=== PATIENT | female | born 1980 | race Two or more races ===

== ENCOUNTER 2017-12-25 13:57 | Inpatient (IN) | payer MEDICAID, OTHER ==
[~2017-12-25] VITALS: Ht 154.9 cm; Wt 66.7 kg
--- NOTE | 2017-12-25 15:20 | NUR ---
Pt states she is unable to provide a urine specimen at this time.
[2017-12-25] MEDS ORDERED: ONDANSETRON 4 MG/2 ML VIAL ONE ×3 (15:43→18:01)
[2017-12-25] MEDS ORDERED: ONDANSETRON IV *ER 4 MG/2 ML VIAL IV ONE ×3 (15:45→17:45)
[2017-12-25] MEDS ORDERED: IV NORMAL SALINE 1000 ML BAG IV ONE (15:45)
[2017-12-25 15:47] LABS: BASOPHILS % (AUTO) 0.2 % (0.0-2.0); EOSINOPHILS # (AUTO) 0.1 K/uL (0.0-0.7); EOSINOPHILS % (AUTO) 0.6 % (0.0-7.0); HEMATOCRIT 38.2 % (31.2-41.9); HEMOGLOBIN 12.1 g/dL (10.9-14.3); LYMPHOCYTES # (AUTO) 0.3 K/uL (20.0-40.0); LYMPHOCYTES % (AUTO) 2.9 % (20.5-51.5); MEAN CORPUSCULAR HEMOGLOBIN 25.5 uug (24.7-32.8); MEAN CORPUSCULAR HGB CONC 32 g/dL (32.3-35.6); MEAN CORPUSCULAR VOLUME 80.5 fL (75.5-95.3); MONOCYTES # (AUTO) 0.5 K/uL (2.0-10.0); NEUTROPHILS # (AUTO) 10.7 K/uL (1.8-8.9); NEUTROPHILS % (AUTO) 92.3 % (38.5-71.5); PLATELET COUNT (AUTO) 324 K/uL (179-408); RED BLOOD CELL COUNT(AUTO) 4.74 MIL/uL (3.63-4.92); WHITE BLOOD COUNT (AUTO) 11.6 K/uL (3.8-11.8)
[2017-12-25 15:54] LABS: CREATININE 0.8 mg/dL (0.6-1.3); POTASSIUM 3.4 mmol/L (3.5-5.1)
[2017-12-25 16:00] LABS: BILIRUBIN,TOTAL 0.7 mg/dL (0.2-1.0); TOTAL PROTEIN, SERUM 7.8 g/dL (6.4-8.2)
[2017-12-25] MEDS ORDERED: IV NS 1000 ML 1,000 ML IV PRN ×2 (16:15→18:00)
--- NOTE | 2017-12-25 17:15 | NUR ---
Pt sleeping with no s/s of distress noted at this time.
--- NOTE | 2017-12-25 17:40 | NUR ---
Hida Scan ordered by , radiology dept notified.
[2017-12-25] MEDS ORDERED: MORPHINE SULFATE 2 MG/1 ML DISP.SYRIN IV ONE (17:45)
[2017-12-25] MEDS ORDERED: METRONIDAZOLE 500 MG/NS 100 ML PIGGYBACK IV ONE (17:45)
[2017-12-25] MEDS ORDERED: CIPROFLOXACIN IV 400 MG in PREMIXED 1 EACH IV SCH (17:45)
[2017-12-25] MEDS ORDERED: PANTOPRAZOLE SODIUM IV 40 MG in IV DEXTROSE 5% 100 ML IV ONE (18:00)
[2017-12-25] MEDS ORDERED: METRONIDAZOLE 500 MG/NS 100ML 100 ML IV ONE (18:01)
[2017-12-25] MEDS ORDERED: PANTOPRAZOLE SODIUM 40 MG VIAL ONE (18:03)
--- NOTE | 2017-12-25 18:31 | NUR ---
Pt signed consent for Hida Scan after talking with the Nuclear Med tech.
--- NOTE | 2017-12-25 18:56 | NUR ---
Per Natasha eta for Hida Scan is 1999. Pt resting in gurney with eyes closed and no s/s of distress noted.
--- NOTE | 2017-12-25 19:14 | NUR ---
REPORT TAKEN FROM DAY SHIFT RN. ASSUMING CARE AT THIS TIME.
--- NOTE | 2017-12-25 19:41 | NUR ---
PT AMBULATED TO AND FROM BATHROOM W/ STEADY GAIT. 1X SBA. NO DISTRESS NOTED.
--- NOTE | 2017-12-25 19:43 | NUR ---
PT TAKEN TO RADIOLOGY BY RFID TECHNICIAN. NO DISTRESS NOTED.
--- NOTE | 2017-12-25 21:23 | NUR ---
PT BACK IN ROOM FROM RADIOLOGY. NO ACUTE EVENTS.
--- NOTE | 2017-12-25 21:51 | NUR ---
PT RESTING IN BED W/ EYES CLOSED. NO ACUTE DISTRESS NOTED.
--- NOTE | 2017-12-25 21:54 | NUR ---
DR BARNES AT BEDSIDE FOR REEVAL.
--- NOTE | 2017-12-25 22:08 | NUR ---
PT TAKEN TO RADIOLOGY FOR CT VIA GURNEY. NO DISTRESS NOTED.
--- NOTE | 2017-12-25 22:25 | NUR ---
PT BACK IN ROOM FROM CT SCAN. NO ACUTE EVENTS.
[2017-12-25] MEDS ORDERED: IBUPROFEN 600 MG TABLET ONE (23:14)
[2017-12-25] MEDS ORDERED: IBUPROFEN 600 MG TABLET PO ONE (23:15)
--- NOTE | 2017-12-26 00:25 | NUR ---
DR BARNES SPEAKING TO MORTEZA FERNANDO REGARDING PT ADMISSION.
--- NOTE | 2017-12-26 00:37 | NUR ---
REPORT GIVEN TO REGINALD MAGALLANES.
[2017-12-26 01:06] VITALS: BP 112/72
--- NOTE | 2017-12-26 01:10 | NUR ---
Pt. admitted to [facility], under care of ABDULLAHI Belongs List completed
[2017-12-26] MEDS ORDERED: MORPHINE SULFATE 2 MG/1 ML DISP.SYRIN IV PRN (01:30)
[2017-12-26] MEDS ORDERED: ZOLPIDEM 5 MG TABLET PO PRN (01:30)
[2017-12-26] MEDS ORDERED: ACETAMINOPHEN 325 MG TABLET PO PRN (01:30)
[2017-12-26] MEDS ORDERED: IV NS 1000 ML 1,000 ML IV PRN (01:30)
[2017-12-26] MEDS ORDERED: ONDANSETRON 4 MG/2 ML VIAL IV PRN (01:30)
[2017-12-26] MEDS ORDERED: MAGNESIUM HYDROXIDE 30 ML LIQUID UDC PO PRN (01:30)
--- NOTE | 2017-12-26 01:30 | NUR ---
Received pt in unit and observed to be AAO x 3. No s/s of acute distress noted at this time. Pt made aware of all plan of care. Pertinent assessments done. Unit orientation provided. Safe environment implemented. Call light within reach.
[2017-12-26 01:41] LABS: *BILIRUBIN,URIN NEGATIVE (NEGATIVE); *BLOOD, URINE NEGATIVE (NEGATIVE); *CLARITY,URINE CLEAR (CLEAR); *COLOR,URINE YELLOW (YELLOW); *KETONES,URINE NEGATIVE (NEGATIVE); *PROTEIN,URINE NEGATIVE (NEGATIVE); LEUKOCYTE ESTERASE ,URINE NEGATIVE (NEGATIVE); NITRITE, URINE NEGATIVE (NEGATIVE); UGLUCOSE NEGATIVE (NEGATIVE)
[2017-12-26] MEDS ORDERED: PIPERACILLIN/TAZOBACTAM/D5W 3.375 G in PREMIXED 1 EACH IV SCH (01:45)
[2017-12-26 02:00] LABS: *AMPHETAMINE, URINE POSITIVE (NEGATIVE); *BARBITURATE, URINE NEGATIVE (NEGATIVE); *CANNABINOID, URINE NEGATIVE (NEGATIVE); *COCCAINE, URINE NEGATIVE (NEGATIVE); *OPIATE, URINE NEGATIVE (NEGATIVE); *PHENCYCLIDINE SCREEN,URINE NEGATIVE (NEGATIVE)
[2017-12-26 02:07] LABS: BACTERIA,URINE FEW /HPF (NONE SEEN); MUCUS,URINE FEW /LPF (0-FEW); RBC,URINE 0-3 /HPF (0-3); SQUAMOUS EPITHELIAL CELL,UR FEW /HPF (NONE SEEN); WBC,URINE 0-3 /HPF (0-3)
[2017-12-26 04:00] VITALS: BP 121/80
[2017-12-26] MEDS ORDERED: CIPROFLOXACIN IV 400 MG in PREMIXED 1 EACH IV SCH ×2 (06:00→18:00)
--- NOTE | 2017-12-26 06:54 | NUR ---
No s/s of acute distress noted at this time. All needs attended to. Pt kept NPO and aware of plan of care. Safe environment implemented. Call light within reach.
[2017-12-26 07:01] LABS: BASOPHILS % (AUTO) 0.2 % (0.0-2.0); EOSINOPHILS # (AUTO) 0.1 K/uL (0.0-0.7); EOSINOPHILS % (AUTO) 1.2 % (0.0-7.0); HEMATOCRIT 31.3 % (31.2-41.9); HEMOGLOBIN 10.5 g/dL (10.9-14.3); LYMPHOCYTES # (AUTO) 0.6 K/uL (20.0-40.0); MEAN CORPUSCULAR HEMOGLOBIN 26.8 uug (24.7-32.8); MEAN CORPUSCULAR HGB CONC 34 g/dL (32.3-35.6); MEAN CORPUSCULAR VOLUME 80.2 fL (75.5-95.3); MONOCYTES # (AUTO) 0.4 K/uL (2.0-10.0); MONOCYTES % (AUTO) 7.9 % (0.0-11.0); NEUTROPHILS # (AUTO) 4.6 K/uL (1.8-8.9); NEUTROPHILS % (AUTO) 80.7 % (38.5-71.5); PLATELET COUNT (AUTO) 262 K/uL (179-408); RED BLOOD CELL COUNT(AUTO) 3.91 MIL/uL (3.63-4.92); WHITE BLOOD COUNT (AUTO) 5.7 K/uL (3.8-11.8)
[2017-12-26 07:22] LABS: CREATININE 0.8 mg/dL (0.6-1.3); MAGNESIUM 1.7 mg/dL (1.8-2.4); PHOSPHOROUS 3.3 mg/dL (2.5-4.9); POTASSIUM 3.4 mmol/L (3.5-5.1)
--- NOTE | 2017-12-26 08:00 | NUR ---
AWAKE ALERT COOPERATE WELL NPO FOR NOW NO PAIN OR N/V RESTING WELL WITH CALL LIGHT IN REACH ,CONTINUE IVF
[2017-12-26] MEDS ORDERED: PANTOPRAZOLE SODIUM 40 MG VIAL IV SCH (09:00)
[2017-12-26] MEDS ORDERED: POTASSIUM CHLORIDE 50 ML IV SCH (09:15)
--- NOTE | 2017-12-26 10:00 | NUR ---
PATIENT WILL TRANSFER TO [facility] IF BED AVAILABLE TODAY
[2017-12-26] MEDS ORDERED: ONDA4VIA30 IV (10:20)
[2017-12-26] MEDS ORDERED: Morphine Sulfate Inj IV (10:20)
[2017-12-26] MEDS ORDERED: PANT40VI IV (10:20)
[2017-12-26] MEDS ORDERED: CIPR-262 PO (10:20)
[2017-12-26] MEDS ORDERED: MAGN400O6 PO (10:20)
[2017-12-26] MEDS ORDERED: ACET325T53 PO (10:20)
[2017-12-26] MEDS: MAGNESIUM SULFATE/D5W 100 ML IV SCH ×2 (11:08→12:55)
[2017-12-26 11:16] VITALS: BP 117/62
[2017-12-26 15:32] VITALS: BP 117/65
--- NOTE | 2017-12-26 17:30 | NUR ---
REPORT GIVEN TO [facility] NURSE EDIT VIA TEL PATIENT WILL ADM TO ROOM 416A
--- NOTE | 2017-12-26 18:00 | NUR ---
EAT DINNER LOW FAT DIET THIS EVENING CORNEL WELL NO ABD PAIN OR N/V AND CIPRO IVPB GIVEN PRIOR TRANSFER TO [facility] TODAY
--- NOTE | 2017-12-26 18:50 | NUR ---
REPORT GIVEN TO AMBULANCE AND TRANSFER TO [facility] CONDITION STABLE
== END 2017-12-26 19:05 | disposition short-term general hospital (02) ==
LOC: ER 13:58 → MED 12-26 00:25
PROVIDERS: ADMIT Nurse Practitioner Acute Care; ATTEND Registered Nurse
DX: K80.00 Calculus of gallbladder with acute cholecystitis without obstruction (principal); I10 Essential (primary) hypertension; E87.6 Hypokalemia; F15.90 Other stimulant use, unspecified, uncomplicated
CPT/HCPCS: 36415; 71045; 78445; 80307; 83690; 83735; 84100; 84703; 85025; 85730; 93005; A4663; A9537; C9113; J0744; J2405; J2543; J3475; J3480; J3490; J7030

== ENCOUNTER 2023-05-17 14:17 | Emergency (ER) | payer MEDICAID, OTHER ==
[~2023-05-17] VITALS: Ht 154.9 cm; Wt 66.2 kg
[~2023-05-17 14:17] MED LIST: ACET325T53 PO; CIPR-262 PO; MAGN400O6 PO; Morphine Sulfate Inj IV; ONDA4VIA23 IV; PANT40VI IV
[2023-05-17 14:31] VITALS: O2SAT 99
== END 2023-05-17 16:44 | disposition left against medical advice (07) ==
LOC: ER 14:17
DX: R07.81 Pleurodynia (principal); Z79.899 Other long term (current) drug therapy; Z88.0 Allergy status to penicillin
CPT/HCPCS: A4606; A4663